=== PATIENT | male | born 1995 ===

== ENCOUNTER 2018-02-24 12:24 | Emergency (ER) | payer MEDICAID ==
[2018-02-24 12:35] VITALS: BP 118/68; PULSE 64; RESP 18; TEMP 98.4; O2SAT 100
--- NOTE | 2018-02-24 13:07 | ED PDOC ---
HPI: General Adult Time Seen by Provider: 02/24/18 12:41 Chief Complaint (Nursing): Cough, Cold, Congestion Chief Complaint (Provider): Cough History Per: Patient History/Exam Limitations: no limitations Onset/Duration Of Symptoms: Days (x1 week) Additional Complaint(s): Patient is a 22 y/o male presenting to the ED with complaints of productive cough, headache and chills x 1 week. Patient states he has had a few episodes of post-tussive vomiting but is tolerating liquids and solids. He denies any fever,, recent travel or known sick contacts. Patient also complains of intermittent dental pain 2 weeks. PMD: Shaik Hernandez Past Medical History Reviewed: Historical Data, Nursing Documentation, Vital Signs Vital Signs: Last Vital Signs Temp 98.4 F 02/24/18 12:33 Pulse 64 02/24/18 12:33 Resp 18 02/24/18 12:33 BP 118/68 02/24/18 12:33 Pulse Ox 100 02/24/18 13:11 - Medical History PMH: No Chronic Diseases - Surgical History Surgical History: No Surg Hx - Family History Family History: States: No Known Family Hx - Living Arrangements Living Arrangements: With Family - Social History Current smoker - smoking cessation education provided: Yes Alcohol: Social Drugs: Denies - Immunization History Hx Tetanus Toxoid Vaccination: (UTD) - Home Medications Home Medications: Ambulatory Orders Medication Instructions Recorded Ibuprofen [Motrin] 400 mg PO Q6 #30 tab 03/11/16 Ranitidine HCl [Zantac] 150 mg PO DAILY PRN #7 tablet 04/07/16 Albuterol HFA [Ventolin HFA 90 1 puff IH ASDIR #1 unit 02/24/18 mcg/actuation (8 g)] Azithromycin [Zithromax] 250 mg PO DAILY #6 tab 02/24/18 Benzonatate 200 mg PO TID PRN #20 capsule 02/24/18 - Allergies Allergies/Adverse Reactions: Allergies Allergy/AdvReac Type Severity Reaction Status Date / Time No Known Allergies Allergy Verified 02/24/18 12:32 Review of Systems ROS Statement: Except As Marked, All Systems Reviewed And Found Negative Constitutional: Negative for: Fever ENT: Positive for: Other (dental pain) Cardiovascular: Negative for: Chest Pain Respiratory: Positive for: Cough (productive). Negative for: Shortness of Breath, SOB with Exertion Gastrointestinal: Positive for: Vomiting (post-tussive) Neurological: Positive for: Headache. Negative for: Dizziness Physical Exam - Reviewed Nursing Documentation Reviewed: Yes Vital Signs Reviewed: Yes - Physical Exam Appears: Positive for: Well, Non-toxic, No Acute Distress Skin: Positive for: Normal Color. Negative for: Rash Eye Exam: Positive for: Normal appearance ENT: Positive for: Normal ENT Inspection, Other (Overall dentition intact; no infection or dental abscess noted. ) Neck: Positive for: Normal, Painless ROM, Supple Cardiovascular/Chest: Positive for: Regular Rate, Rhythm Respiratory: Positive for: Normal Breath Sounds. Negative for: Wheezing, Respiratory Distress Gastrointestinal/Abdominal: Positive for: Soft. Negative for: Tenderness Neurologic/Psych: Positive for: Alert, Oriented - ECG O2 Sat by Pulse Oximetry: 100 (RA) Pulse Ox Interpretation: Normal Medical Decision Making Medical Decision Making: Impression: URI Patient is well-appearing, afebrile upon arrival. No respiratory distress noted. Plan: - Prescriptions given for albuterol, Zithromax and Tessalon Perles. Patient was counseled on importance of smoking cessation. He was advised to follow up with PMD and dentist. Disposition - Clinical Impression Clinical Impression: Upper respiratory infection, Pain, dental - Patient ED Disposition Is Patient to be Admitted: No Counseled Patient/Family Regarding: Diagnosis, Need For Followup, Rx Given, Smoking Cessation - Disposition Referrals: Hannah Hernandez MD [Non-Staff] - Disposition: Routine/Home Disposition Time: 13:17 Condition: STABLE Additional Instructions: Take prescription meds as directed. Advil for pain as needed. Follow-up with primary doctor in 2-3 days and also with dentist. Prescriptions: Albuterol HFA [Ventolin HFA 90 mcg/actuation (8 g)] 1 puff IH ASDIR #1 unit Azithromycin [Zithromax] 250 mg PO DAILY #6 tab Benzonatate 200 mg PO TID PRN #20 capsule PRN Reason: Cough Instructions: Bacterial Upper Respiratory Infection, Adult, Dental Pain, Quitting Smoking Forms: [facility] (Faroese)
== END 2018-02-24 13:52 | disposition home or self-care (01) ==
LOC: H.ER 12:24
DX: J06.9 Acute upper respiratory infection, unspecified (principal); F17.200 Nicotine dependence, unspecified, uncomplicated

== ENCOUNTER 2018-02-27 02:03 | Emergency (ER) | payer MEDICAID ==
[2018-02-27 02:31] VITALS: RESP 18; TEMP 98; O2SAT 98
[2018-02-27] MEDS ORDERED: Lidocaine 2% Inj (20ml) ONE (03:35)
--- NOTE | 2018-02-27 03:48 | ED PDOC ---
Upper Extremity Pain/Injury Time Seen by Provider: 02/27/18 02:56 Chief Complaint (Nursing): Finger,Hand,&Wrist Chief Complaint (Provider): Finger,Hand,&Wrist History Per: Patient History/Exam Limitations: no limitations Onset/Duration Of Symptoms: Hrs Current Symptoms Are (Timing): Still Present Additional Complaint(s): Darwin Ambrose is a 22 year old male with no past medical history who is presenting to the ED for evaluation of right hand injury s/p fall just prior to arrival. Patient states that he fell and braced his fall with this right hand. He states that he notes swelling and a deformity but denies any numbness, decrease in range of motion, or any other injuries. Past Medical History Reviewed: Historical Data, Nursing Documentation, Vital Signs Vital Signs: Last Vital Signs Temp 98 F 02/27/18 02:29 Pulse 115 H 02/27/18 02:29 Resp 18 02/27/18 02:29 BP 114/82 02/27/18 02:29 Pulse Ox 98 02/27/18 02:29 - Medical History PMH: No Chronic Diseases - Surgical History Surgical History: No Surg Hx - Family History Family History: States: Unknown Family Hx - Social History Current smoker - smoking cessation education provided: Yes Alcohol: Social Drugs: Denies - Home Medications Home Medications: Ambulatory Orders Medication Instructions Recorded Nitrofurantoin Macrocrystals 100 mg PO BID #10 cap 05/02/16 [Macrobid] Ibuprofen [Motrin] 400 mg PO Q6 #30 tab 05/05/16 - Allergies Allergies/Adverse Reactions: Allergies Allergy/AdvReac Type Severity Reaction Status Date / Time No Known Allergies Allergy Verified 05/05/16 20:20 Review of Systems ROS Statement: Except As Marked, All Systems Reviewed And Found Negative Musculoskeletal: Positive for: Hand Pain (right, swelling ). Negative for: Other (decrease in range of motion) Neurological: Negative for: Numbness Physical Exam - Reviewed Nursing Documentation Reviewed: Yes Vital Signs Reviewed: Yes - Physical Exam Comments: GENERAL APPEARANCE: Patient is awake, alert, oriented x 3, in no acute distress. SKIN: Warm, dry; (-) cyanosis. RIGHT HAND: (+) Tenderness, swelling and deformity noted to dorsal aspect of right hand over 4th and 5th metacarpal, (+) FROM, (-) distal neurovascular deficit. NEURO AND PSYCH: Mental status as above. - ECG O2 Sat by Pulse Oximetry: 98 (RA) Pulse Ox Interpretation: Normal Medical Decision Making Medical Decision Making: Time: 2:57 Plan: --Motrin 600 mg PO --X-Ray right hand XR R hand : no fracture, +dislocation of the 4th metacarpal, as read by PA. X-ray results discussed with the patient in great detail. Dislocation was reduced by PA (see procedure note). Orthoglass ulnar splint applied. Neurovascular intact post splint application. Post reduction XR ordered. XR R hand (post reduction) : no fracture, successful reduction of dislocation of the 4th metacarpal, as read by PA. Patient instructed to follow-up with orthopedic referral provided in 1-2 days without fail. Advised to take otc motrin prn for pain. Rest, ice and elevate the joint. Return to the emergency room at any time for any new or worsening symptoms. Patient states he fully agrees with and understands discharge instructions. States that he agrees with the plan and disposition. Verbalized and repeated discharge instructions and plan. I have given the patient opportunity to ask any additional questions. Scribe Attestation: Documented by, Diamond Pineda acting as a scribe for Pepper Herr PA-C. Provider Scribe Attestation: All medical record entries made by the Scribe were at my direction and personally dictated by me. I have reviewed the chart and agree that the record accurately reflects my personal performance of the history, physical exam, medical decision making, and the department course for this patient. I have also personally directed, reviewed, and agree with the discharge instructions and disposition. Procedures - Time-Out Type of Procedure: reduction of dislocation Site of Procedure: R 4th metacarpal Correct Patient: Yes Correct Procedure: Yes Correct Site Marked: Yes X-Ray Marked: Yes PA/Tech: Local lidocaine was administered. Dislocation was successfully reduced. Disposition - Clinical Impression Clinical Impression: Dislocation of metacarpal joint - Patient ED Disposition Is Patient to be Admitted: No Counseled Patient/Family Regarding: Studies Performed, Diagnosis, Need For Followup - Disposition Referrals: Gunnar Barnett MD [Staff Provider] - Disposition: Routine/Home Disposition Time: 04:00 Condition: STABLE Additional Instructions: Thank you for letting us take care of you today. You were treated for R metacarpal dislocation with reduction. The emergency medical care you received today was directed at your acute symptoms. Take over the counter motrin as needed for pain. Return to the Emergency Department if your symptoms worsen, do not improve, or if you have any other problems. Please call one of the physicians/clinics you have been referred to that are listed on the Patient Visit Information form that is included in your discharge packet. Bring any paperwork you were given at discharge with you along with any medications you are taking to your follow up visit. Our treatment cannot replace ongoing medical care by a primary care provider (PCP) outside of the emergency department. Thank you for allowing the [facility] team to be part of your care today. If you had an X-Ray : A Radiologist will review the ED reading if any change in treatment is needed we will contact you. 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
[2018-02-27 04:37] VITALS: BP 117/78; PULSE 78
--- NOTE | 2018-02-27 08:29 | RAD ---
PROCEDURE: Right Hand Radiographs. HISTORY: post reduction COMPARISON: None. FINDINGS: BONES: Normal. No fracture. JOINTS: Normal. No osteoarthritic changes. SOFT TISSUES: Normal. OTHER FINDINGS: None. IMPRESSION: Normal right hand radiographs.
--- NOTE | 2018-02-27 08:32 | RAD ---
PROCEDURE: Right Hand Radiographs. HISTORY: pain COMPARISON: None. FINDINGS: BONES: Normal. No fracture. JOINTS: Normal. No osteoarthritic changes. SOFT TISSUES: Normal. OTHER FINDINGS: None. IMPRESSION: Normal right hand radiographs.
== END 2018-02-27 04:32 | disposition home or self-care (01) ==
LOC: MERGE 02:03 → H.ER 02:03
DX: S63.268A Dislocation of metacarpophalangeal joint of other finger, initial encounter (principal); S63.269A Dislocation of metacarpophalangeal joint of unspecified finger, initial encounter; W19.XXXA Unspecified fall, initial encounter; Y92.89 Other specified places as the place of occurrence of the external cause; F17.200 Nicotine dependence, unspecified, uncomplicated

== ENCOUNTER 2018-03-01 15:18 | Emergency (ER) | payer MEDICAID ==
[2018-03-01 15:31] VITALS: BP 135/88; PULSE 99; RESP 16; TEMP 98.3; O2SAT 99
--- NOTE | 2018-03-01 17:12 | ED PDOC ---
Upper Extremity Pain/Injury Time Seen by Provider: 03/01/18 16:43 Chief Complaint (Nursing): Upper Extremity Problem/Injury Chief Complaint (Provider): Upper Extremity Problem/Injury History Per: Patient History/Exam Limitations: no limitations Onset/Duration Of Symptoms: Days (3) Current Symptoms Are (Timing): Still Present Additional Complaint(s): 22 year old male presents to the ED for repeat XR of his right hand. Patient states he was seen here three days ago after he fell and dislocated his right fourth digit, which he had reduced at that time. Patient reports he was then sent home with an ortho follow up, which he has yet to go to. Today, he received a call to return to the ED for repeat XRs because there may be a possible fracture. Patient is right hand dominant. Patient reports his symptoms have resolved since his prior visit and notes no pain at the site of injury. PMD: none provided Past Medical History Reviewed: Historical Data, Nursing Documentation, Vital Signs Vital Signs: Last Vital Signs Temp 98.3 F 03/01/18 15:29 Pulse 99 H 03/01/18 15:29 Resp 16 03/01/18 15:29 BP 135/88 03/01/18 15:29 Pulse Ox 99 03/01/18 15:29 - Medical History PMH: No Chronic Diseases - Surgical History Surgical History: No Surg Hx - Family History Family History: States: Unknown Family Hx - Social History Current smoker - smoking cessation education provided: Yes Alcohol: Social Drugs: Denies - Immunization History Hx Tetanus Toxoid Vaccination: (UTD) - Home Medications Home Medications: Ambulatory Orders Medication Instructions Recorded Ibuprofen [Motrin] 400 mg PO Q6 #30 tab 03/11/16 Ranitidine HCl [Zantac] 150 mg PO DAILY PRN #7 tablet 04/07/16 Nitrofurantoin Macrocrystals 100 mg PO BID #10 cap 05/02/16 [Macrobid] Ibuprofen [Motrin] 400 mg PO Q6 #30 tab 05/05/16 Albuterol HFA [Ventolin HFA 90 1 puff IH ASDIR #1 unit 02/24/18 mcg/actuation (8 g)] Azithromycin [Zithromax] 250 mg PO DAILY #6 tab 02/24/18 Benzonatate 200 mg PO TID PRN #20 capsule 02/24/18 Ibuprofen [Motrin Tab] 800 mg PO Q8 #21 tab 03/01/18 - Allergies Allergies/Adverse Reactions: Allergies Allergy/AdvReac Type Severity Reaction Status Date / Time No Known Allergies Allergy Verified 02/24/18 12:32 Review of Systems ROS Statement: Except As Marked, All Systems Reviewed And Found Negative Musculoskeletal: Positive for: Hand Pain (repeat xr on right hand) Physical Exam - Reviewed Nursing Documentation Reviewed: Yes Vital Signs Reviewed: Yes - Physical Exam Comments: GENERAL APPEARANCE: Patient is awake, alert, oriented x 3, in no acute distress. SKIN: Warm, dry; (-) cyanosis. RIGHT UPPER EXTREMITY: Ulnar gutter splint in place to right upper extremity, dry and intact. (+) sensation intact, (+) capillary refill intact CHEST AND RESPIRATORY: (-) wheezing; (-) rales, (-) rhonchi, (-) rub; breath sounds equal bilaterally. HEART AND CARDIOVASCULAR: (-) irregularity; (-) murmur, (-) gallop. NEURO AND PSYCH: Mental status as above. - ECG O2 Sat by Pulse Oximetry: 99 (RA) Pulse Ox Interpretation: Normal Medical Decision Making Medical Decision Making: Time: 16:53 Initial Impression: repeat xr evaluation, hand injury s/p fall Initial Plan: --Right hand XR --Re-evaluation Right hand XR reading from 02/27/2018 08:27 FINDINGS: BONES: Normal. No fracture. JOINTS: Normal. No osteoarthritic changes. SOFT TISSUES: Normal. OTHER FINDINGS: None. IMPRESSION: Normal right hand radiographs. ADDENDUM: Addendum dictation: The patient is status post close reduction 5th MCP dislocation. The previous dorsal dislocation of the MCP has been successfully reduced. Questionable tiny bony fragment posterior to the MCP articulation. Possible displaced fracture fragment. [ Addendum Report Added by Hudson Thorne MD at 02/27/2018 08:35:41 ] 1725 Hand XR FINDINGS: Distal right upper extremity cast limits evaluation of fine bony detail. No definite fracture is evident. The 5th metacarpophalangeal articulations remains intact. IMPRESSION: Casted views of the right hand limited evaluation/sensitivity for subtle fracture. 1735 Repeat XR ordered after splint removed by ROSA. Hand exam s/p splint removal: slight edema to dorsum of hand. FROM all digits, hand, and wrist (-) tenderness (-) ecchymosis (-) erythema. 174 Upon return from repeat XR, ulnar gutter splint was reapplied by Davis LEE. Neurovascularly intact s/p splint application. Educated on splint care. 1800 Repeat Hand XR FINDINGS: Distal right upper extremity cast has been removed. Slight irregularity is noted of the 3rd metacarpal likely represent sequelae of remote trauma. Tiny ossific density is noted on the lateral view at the base of a metacarpal. The origin site is unclear. IMPRESSION: Tiny ossific density is noted on the lateral view of the base of the metacarpal , equivocal for fracture. Slight irregularity of the 3rd metacarpal, likely representing sequelae of remote trauma. 182 On re-evaluation, patient offers no additional complaints. On exam, patient remains AAOx3, in no acute distress. Neck is supple, lungs CTA, cardiac RRR, neuro exam shows no focal findings. VSS, stable for discharge. Diagnostic results d/w the patient in great detail. Dx of hand injury/fracture s /p fall d/w the patient. Based on history, exam and diagnostic results plan will be for discharge and outpatient ortho follow up. Advised to follow up with primary care physician/ortho in 1-2 days without fail. Advised to take medication as prescribed. Return to the emergency room at any time for any new or worsening symptoms. Patient states he fully agrees with and understands discharge instructions. States that he agrees with the plan and disposition. Verbalized and repeated discharge instructions and plan. I have given the patient opportunity to ask any additional questions. Scribe Attestation: Documented by Mirela Storey, acting as a scribe for Grace Cannon PA-C. Provider Scribe Attestation: All medical record entries made by the Scribe were at my direction and personally dictated by me. I have reviewed the chart and agree that the record accurately reflects my personal performance of the history, physical exam, medical decision making, and the department course for this patient. I have also personally directed, reviewed, and agree with the discharge instructions and disposition. Disposition - Clinical Impression Clinical Impression: Hand injury, Hand fracture, right - Patient ED Disposition Is Patient to be Admitted: No Counseled Patient/Family Regarding: Studies Performed, Diagnosis, Need For Followup, Rx Given - Disposition Referrals: Gunnar Barnett MD [Staff Provider] - Sarina Antoine MD [Staff Provider] - Disposition: Routine/Home Disposition Time: 18:25 Condition: STABLE Additional Instructions: FOLLOW UP WITH HAND/ORTHO DIRECTED IN 1-2 DAYS WITHOUT FAIL. KEEP SPLINT CLEAN AND DRY. TAKE IBUPROFEN TO REDUCE SWELLING. RETURN TO ED WITH ANY NEW OR WORSENING SYMPTOMS. Prescriptions: Ibuprofen [Motrin Tab] 800 mg PO Q8 #21 tab Instructions: Hand Fracture, Finger Dislocation (DC) Forms: [facility] (Botswanan) Print Language: BELIZEAN - POA Present On Arrival: Falls Or Trauma (ON 02/26/18)
--- NOTE | 2018-03-01 17:27 | RAD ---
PROCEDURE: Right Hand Radiographs. HISTORY: call back, ? fracture COMPARISON: Right hand radiographs dated 02/27/2018. FINDINGS: Distal right upper extremity cast limits evaluation of fine bony detail. No definite fracture is evident. The 5th metacarpophalangeal articulations remains intact. IMPRESSION: Casted views of the right hand limited evaluation/sensitivity for subtle fracture.
--- NOTE | 2018-03-01 18:01 | RAD ---
PROCEDURE: Right Hand Radiographs. HISTORY: call back, ? fracture COMPARISON: Right hand radiographs performed approximately 2.5 hours prior. FINDINGS: Distal right upper extremity cast has been removed. Slight irregularity is noted of the 3rd metacarpal likely represent sequelae of remote trauma. Tiny ossific density is noted on the lateral view at the base of a metacarpal. The origin site is unclear. IMPRESSION: Tiny ossific density is noted on the lateral view of the base of the metacarpal, equivocal for fracture. Slight irregularity of the 3rd metacarpal, likely representing sequelae of remote trauma.
== END 2018-03-01 18:43 | disposition home or self-care (01) ==
LOC: H.ER 15:18
DX: M79.641 Pain in right hand (principal); S63.26 Dislocation of metacarpophalangeal joint of finger; S63.269D Dislocation of metacarpophalangeal joint of unspecified finger, subsequent encounter; F17.200 Nicotine dependence, unspecified, uncomplicated

== ENCOUNTER 2018-11-27 08:46 | Emergency (ER) | payer SELFPAY ==
[2018-11-27 08:48] VITALS: BMI 27.1
[2018-11-27 08:49] VITALS: TEMP 97.8
--- NOTE | 2018-11-27 09:18 | ED PDOC ---
HPI: Back Time Seen by Provider: 11/27/18 09:06 Chief Complaint (Nursing): Back Pain Chief Complaint (Provider): Back Pain History Per: Patient History/Exam Limitations: no limitations Onset/Duration Of Symptoms: Days (yesterday) Current Symptoms Are (Timing): Still Present Quality Of Discomfort: "Pain" Previous Symptoms: None Associated Symptoms: Other (right leg pain) Exacerbating Factor(s): Standing Additional Complaint(s): Delgado Ambrose is a 23 year old male, with no significant past medical history, who presents to the emergency department complaining of back pain associated with right leg pain ongoing since yesterday. Patient states he was sitting down but developed a back pain as soon as he stood up. Patient went to bed but this morning he couldn't get up from bed due to pain. He denies having similar symptoms in the past and is currently walking with a limp. Patient denies any falls, changes in physical activity, bladder or bowel dysfunction, numbness, tingling, weakness, chest pain, shortness of breath, fever, chills, headache or other possible medial complaints. PMD: None provided. Past Medical History Reviewed: Historical Data, Nursing Documentation, Vital Signs Vital Signs: Last Vital Signs Temp 97.8 F 11/27/18 08:48 Pulse 72 11/27/18 08:48 Resp 18 11/27/18 08:48 BP 115/69 11/27/18 08:48 Pulse Ox 99 11/27/18 08:48 - Medical History PMH: Migraine - Surgical History Surgical History: No Surg Hx - Family History Family History: States: Unknown Family Hx - Social History Current smoker - smoking cessation education provided: No Alcohol: Social Drugs: Denies - Immunization History Hx Tetanus Toxoid Vaccination: (UTD) Hx Influenza Vaccination: No Hx Pneumococcal Vaccination: No - Home Medications Home Medications: Ambulatory Orders Medication Instructions Recorded Ibuprofen [Motrin] 400 mg PO Q6 #30 tab 03/11/16 Ranitidine HCl [Zantac] 150 mg PO DAILY PRN #7 tablet 04/07/16 Nitrofurantoin Macrocrystals 100 mg PO BID #10 cap 05/02/16 [Macrobid] Ibuprofen [Motrin] 400 mg PO Q6 #30 tab 05/05/16 Albuterol HFA [Ventolin HFA 90 1 puff IH ASDIR #1 unit 02/24/18 mcg/actuation (8 g)] Azithromycin [Zithromax] 250 mg PO DAILY #6 tab 02/24/18 Benzonatate 200 mg PO TID PRN #20 capsule 02/24/18 Ibuprofen [Motrin Tab] 800 mg PO Q8 #21 tab 03/01/18 Cyclobenzaprine [Cyclobenzaprine 10 mg PO BID #14 tab 11/27/18 HCl] - Allergies Allergies/Adverse Reactions: Allergies Allergy/AdvReac Type Severity Reaction Status Date / Time No Known Allergies Allergy Verified 02/24/18 12:32 Review of Systems ROS Statement: Except As Marked, All Systems Reviewed And Found Negative Constitutional: Negative for: Fever, Chills Cardiovascular: Negative for: Chest Pain Respiratory: Negative for: Shortness of Breath Gastrointestinal: Negative for: Constipation Genitourinary Male: Negative for: Dysuria, Frequency, Incontinence, Hematuria Musculoskeletal: Positive for: Back Pain, Leg Pain (right) Neurological: Negative for: Weakness, Numbness (tingling), Headache Physical Exam - Reviewed Nursing Documentation Reviewed: Yes Vital Signs Reviewed: Yes - Physical Exam Appears: Positive for: No Acute Distress Head Exam: Positive for: ATRAUMATIC, NORMAL INSPECTION, NORMOCEPHALIC Skin: Positive for: Normal Color, Warm, Dry Eye Exam: Positive for: Normal appearance, EOMI, PERRL Neck: Positive for: Normal, Painless ROM Cardiovascular/Chest: Positive for: Regular Rate, Rhythm. Negative for: Murmur Respiratory: Positive for: Normal Breath Sounds. Negative for: Respiratory Distress Gastrointestinal/Abdominal: Positive for: Normal Exam, Soft. Negative for: Tenderness, Guarding, Rebound Back: Positive for: Normal Inspection (No tenderness to palpation of spine). Negative for: L CVA Tenderness, R CVA Tenderness, Vertebral Tenderness Extremity: Positive for: Normal ROM (upper and lower extremities). Negative for: Tenderness, Deformity, Swelling Neurological/Psych: Positive for: Awake, Alert, Normal Tone, Oriented. Negative for: Motor/Sensory Deficits - ECG O2 Sat by Pulse Oximetry: 99 (RA) Pulse Ox Interpretation: Normal Medical Decision Making Medical Decision Making: Time: 09:06 Initial Impression: Musculoskeletal pain. No trauma or neurological deficits. Initial Plan: --Lumbar Spine complete [RAD] --Flexeril 10mg PO --Toradol 15 mg IM --Tylenol 325 mg tab --Reevaluation 12:45 X-rays showed no abnormalities. Patient reports feeling better and states symptoms have improved. Upon provider reevaluation patient is feeling better, is medically stable, and requires no further treatment in the ED at this time. Patient will be discharged with Rx for Flexeril. Counseling was provided and all questions were answered regarding diagnosis and need for follow up with clinic. There is agreement to discharge plan. Return if symptoms persist or worsen. Scribe Attestation: Documented by Otilio Kellogg, acting as a scribe Sammy Arreola MD Provider Scribe Attestation: All medical record entries made by the Scribe were at my direction and personally dictated by me. I have reviewed the chart and agree that the record accurately reflects my personal performance of the history, physical exam, medical decision making, and the department course for this patient. I have also personally directed, reviewed, and agree with the discharge instructions and disposition. Disposition - Clinical Impression Clinical Impression: Low back pain - Disposition Disposition: Routine/Home Disposition Time: 12:45 Condition: IMPROVED Additional Instructions: Take Flexeril for muscle spasm. Do not drive or perform dangerous activities if you have taken Flexeril. Take Motrin or Tylenol for the pain. Gentle back stretches and exercises. Follow up with primary medical doctor for salvage determiner care. Prescriptions: Cyclobenzaprine [Cyclobenzaprine HCl] 10 mg PO BID #14 tab Instructions: Low Back Pain (DC) Forms: [email or web address] (Tai[place]ese) Print Language: FRENCH
--- NOTE | 2018-11-27 11:27 | RAD ---
Date of service: 11/27/2018 PROCEDURE: Radiographs of the Lumbar Spine. HISTORY: lower back pain COMPARISON: No prior. TECHNIQUE: 5 views obtained. FINDINGS: BONES: There is normal alignment of the lumbar vertebral bodies. There is normal lumbar lordosis. There is no acute fracture, spondylolysis or spondylolisthesis. Bone mineralization is normal. DISC SPACES: There is mild degenerative disc disease at L5-S1 with mild reduced disc height and facet arthropathy. The remaining disc heights are maintained. OTHER FINDINGS: No pathologic soft tissue calcifications. Both sacroiliac joints are normal. IMPRESSION: No acute fracture, spondylolysis or spondylolisthesis. Mild degenerative disc disease at L5-S1.
[2018-11-27 13:03] VITALS: BP 120/70; PULSE 68; RESP 16
[2018-11-27 13:05] VITALS: O2SAT 100
== END 2018-11-27 13:00 | disposition home or self-care (01) ==
LOC: H.ER 08:46
DX: M54.5 Low back pain (principal); M51.37 Other intervertebral disc degeneration, lumbosacral region
CPT/HCPCS: 72114; 96372; 99283; J1885